=== PATIENT | male | born 1955 | race Caucasian/White ===

== ENCOUNTER 2022-12-22 13:45 | Outpatient (CLI) | payer OTHER, SELFPAY ==
--- NOTE | 2022-12-22 14:00 | MR_ITS ---
[address] [address] Phone:?[phone] Fax:?[phone] Referring Physician Information: David Ramos M.D. [id number] [facility] [address] Phone:?[phone] Fax:?[phone] Patient:?Deon Howell D.O.B:?1955 Sex:?Male Phone:?[phone] [facility] MRN:?[id number] Exam Date:?12/22/2022 EXAM: MRI of the LEFT SHOULDER, without contrast CLINICAL HISTORY: Left shoulder pain. Evaluate for rotator cuff pathology. COMPARISONS: Plain radiographs 12/14/2022. TECHNICAL: MRI sequences of the left shoulder: Axials: PD, T2 Coronals: PD, STIR, T2 Sagittals: PD, T2 SEDATION: None CONTRAST: None FINDINGS: Bones: No fracture or suspicious bone marrow signal abnormality. Coracoacromial arch: Acromion: No os acromiale. Type I-II acromion. Acromiohumeral space: The bony distance is unremarkable. Coracohumeral space: The bony distance is unremarkable. Acromioclavicular joint: No acute injury, arthropathy, or inferior hypertrophy. Coracoclavicular ligament: The coracoclavicular ligament is intact. Rotator cuff muscles/tendons: Supraspinatus: There is a 2.5 cm in AP dimension approximately 50% partial- thickness undersurface tear of the supraspinous tendon with retraction of torn tendon fibers to the level of the medial aspect of the humeral head. Slight atrophy of the supraspinatus muscle. Infraspinatus: Mild attenuation of the infraspinatus tendon insertion may reflect ill-defined attritional partial tearing without evidence of acute discrete fluid intense tendon tear or retracted tendon tissue. Mild atrophy of the infraspinatus muscle. There is edema-like signal within the infraspinatus muscle Teres minor: Moderate to marked atrophy of the teres minor muscle without teres minor tendon tear. There is edema-like signal within the teres minor muscle. Subscapularis: The subscapularis tendon and muscle are intact. There is edema-like signal within the deltoid muscle. Labrum and glenohumeral joint: No evidence of labral tear although evaluation is suboptimal because of nonarthrogram technique. Physiologic amount of joint fluid. No full-thickness chondral defect or subchondral bone marrow edema/cystic change is seen. No convincing evidence of capsular edema or thickening although evaluation is suboptimal because of lack of joint distention. Proximal biceps tendon, long head and short heads: The long and short heads of the proximal biceps tendon are intact. Bursae: Subacromial/subdeltoid: Slight bursitis. Subcoracoid: No convincing subcoracoid bursal thickening/bursitis. IMPRESSION: 1. 2.5 cm in AP dimension approximately 50% partial-thickness undersurface tear of the supraspinatus tendon with retraction of torn tendon fibers to the level of the medial aspect of the humeral head. Slight atrophy of the supraspinatus muscle. 2. Mild attenuation of the infraspinatus tendon insertion may reflect ill- defined attritional partial tearing without evidence of acute discrete fluid intense tendon tear or retracted tendon tissue. Mild atrophy of the infraspinatus muscle. 3. Slight subacromial/subdeltoid bursitis. 4. Edema-like signal within the infraspinatus, teres minor, and deltoid muscles could reflect sequela of [place]arson[place] Torres syndrome but is nonspecific. 5. Moderate to marked atrophy of the teres minor muscle without teres minor tendon tear. 6. Intact biceps tendon. RCB Electronically signed on 12/23/2022 7:58:00 AM by Morales Rodríguez M.D.
== END 2022-12-22 13:46 | disposition home or self-care (01) ==
LOC: MRI 13:47
PROVIDERS: PCP Family Medicine; Visit Provider Orthopaedic Surgery
DX: M25.512 Pain in left shoulder (principal); M75.102 Unspecified rotator cuff tear or rupture of left shoulder, not specified as traumatic; M75.52 Bursitis of left shoulder; S46.912A Strain of unspecified muscle, fascia and tendon at shoulder and upper arm level, left arm, initial encounter
CPT/HCPCS: 73221